=== PATIENT | female | born 1945 | race Caucasian/White ===

== ENCOUNTER → 2023-09-26 13:24 | Outpatient (CLI) | payer MEDICARE, BC, SELFPAY ==
--- NOTE | 2023-09-26 13:36 | DI.CT.S_ITS ---
PROCEDURE: CT ABDOMEN PELVIS W CON INDICATIONS: ABDOMINAL PAIN / RETAINED FOREIGN BODY TECHNIQUE: After the administration of oral and intravenous contrast, axial sections were acquired from the lung bases to the pubic symphysis. Coronal and sagittal reformats were performed. For radiation dose reduction, the following was used: automated exposure control, adjustment of mA and/or kV according to patient size. COMPARISON:None. FINDINGS: Image quality: Excellent. Lung bases: Unremarkable. Heart: No significant findings. ABDOMEN: Liver: No solid mass. Gallbladder: No radiopaque gallstones or wall thickening. Biliary ducts: No biliary dilation. Pancreas: No ductal dilation. Spleen: Size is within normal limits. Adrenal Glands: No adrenal nodules. Kidneys and Ureters: No hydronephrosis. No solid mass. No complex renal cystic lesion which requires follow up. Stomach and Bowel: Moderately advanced diverticulosis without evidence of diverticulitis. Peritoneum: No abnormal intraperitoneal fluid. No free air. Ventral Wall: No hernia. Abdominal Nodes: No retroperitoneal or mesenteric adenopathy by size criteria. Vessels: Aorta and inferior vena cava are normal in size. PELVIS: Pelvic Organs: Unremarkable. Bladder: Unremarkable. Pelvic Nodes: No enlarged lymph nodes. Miscellaneous: No inguinal hernias are seen. Bones: There is a moderate to severe T12 compression fracture which has an appearance suggesting that it has a potential acute or subacute component. There is extensive lumbar degenerative change. Bilateral L5 pars defects with mild anterolisthesis of L5 on S1 and severe right foraminal narrowing with right foraminal L5 nerve root impingement. IMPRESSION: 1. No acute abdominal process. 2. Moderately advanced colonic diverticulosis. 3. A moderately severe T12 compression likely as an acute or subacute component. 4. Extensive lumbar degenerative change. 5. Bilateral L5 pars defects with anterolisthesis of L5 on S1 and severe right foraminal narrowing with right foraminal L5 nerve root impingement. Dictated by: Alexander Bailon M.D. on 09/26/2023 at 18:48 Approved by: Alexander Bailon M.D. on 09/26/2023 at 18:55
== END ==
PROVIDERS: Family Provider Family Medicine; PCP Family Medicine; Referring Provider Internal Medicine; Visit Provider Internal Medicine
DX: K57.90 Diverticulosis of intestine, part unspecified, without perforation or abscess without bleeding (principal); R10.9 Unspecified abdominal pain; M48.54XA Collapsed vertebra, not elsewhere classified, thoracic region, initial encounter for fracture; M47.816 Spondylosis without myelopathy or radiculopathy, lumbar region; M43.17 Spondylolisthesis, lumbosacral region; M48.07 Spinal stenosis, lumbosacral region; Z18.9 Retained foreign body fragments, unspecified material
CPT/HCPCS: 74177; Q9967

== ENCOUNTER → 2025-04-07 16:06 | Outpatient (CLI) | payer MEDICARE, SELFPAY ==
--- NOTE | 2025-04-07 16:08 | DI.ECHO.S_ITS ---
[place] [facility] : : [address] : : [place] : : [id number] : : Phone: [phone] Echocardiogram Report + + :Name: SD YAN I Study Date: 04/07/2025 Height: 62 in : :[facility] ReadingLocation: Weight: 140 lb : : Gender: Female BSA: 1.6 m2 : :: 1945 Age: 79 yrs BP: 152/85 mmHg: :Reason For Study: ATRIAL FIBRILLATION : :Ordering Physician: RADHA BECKHAM Performed By: Antoni Murphy : :Referring: RADHA BECKHAM : + + Interpretation Summary The ejection fraction is estimated to be 60-65%. There is trace tricuspid regurgitation. The right ventricular systolic pressure is estimated to be at least 39 mmHg based on an estimated right atrial pressure of 3 mm Hg. Procedure: A two-dimensional transthoracic echocardiogram with color flow and Doppler was performed. The study quality was technically good. Comparison is made with the echocardiogram of 10/05/2011. The patient was in normal sinus rhythm during the exam. Left Ventricle: The left ventricle is normal in size. There is normal left ventricular wall thickness. There is no ventricular septal defect visualized. The ejection fraction is estimated to be 60-65%. There are no focal wall motion abnormalities. Diastolic parameters suggest probable normal left ventricular diastolic function and normal filling pressures. Right Ventricle: The right ventricle is normal in size and function. Atria: The left atrium is moderately dilated. Right atrial size is normal. There is no Doppler evidence for an interatrial shunt. Mitral Valve: There is mild mitral annular calcification. The mitral valve leaflets appear normal. There is no evidence of stenosis, fluttering, or prolapse. There is trace mitral regurgitation. Aortic Valve: The aortic valve is trileaflet. The aortic valve opens well. There is trace aortic regurgitation. Tricuspid Valve: The tricuspid valve leaflets are thin and pliable. There is trace tricuspid regurgitation. The right ventricular systolic pressure is estimated to be at least 39 mmHg based on an estimated right atrial pressure of 3 mm Hg. Pulmonic Valve: The pulmonic valve is not well visualized. There is no pulmonic valvular regurgitation. Great Vessels: The aortic root is normal size. The dimensions of the ascending aorta are normal. The pulmonary is not well visualized. The IVC is of normal diameter and collapses greater than 50% with a sniff. This suggests a low right atrial pressure of 3 mm Hg. Pericardium/ Pleura There is no pericardial effusion. There is no pleural effusion. MMode/2D Measurements & Calculations LVIDd: 5.0 cm LVOT diam: 1.8 cm LVIDs: 3.1 cm Ao root diam: 3.3 cm FS: 37.7 % asc Aorta Diam: 3.4 cm EPSS: 0.79 cm IVSd: 0.83 cm LVPWd: 0.73 cm LV griffiths. diameter/BSA (cm/m^2): 3.1 LV sys. diameter/BSA (cm/m^2): 1.9 LA A2 area: 19.9 cm2 RA long axis: 4.6 cm LA A4 area: 24.0 cm2 RA area: 14.9 cm2 LA length (vol): 6.4 cm RA vol: 40.5 ml LA vol: 62.8 ml RA : 24.7 ml/m2 LA vol index: 38.2 ml/m2 IVC diam: 2.1 cm RVD1 (basal): 3.3 cm RVD2 (mid): 2.5 cm TAPSE: 2.3 cm Doppler Measurements & Calculations Ao V2 max: 125.3 cm/sec LVOT Max Robbie: 105.2 cm/sec Ao V2 mean: 88.3 cm/sec LV V1 max P.4 mmHg Ao max P.3 mmHg LV V1 VTI: 26.8 cm Ao mean P.4 mmHg LUCIA(I,D): 2.1 cm2 Ao V2 VTI: 33.9 cm LUCIA(V,D): 2.2 cm2 sev ratio: 0.79 LUCIA indexed to BSA (cm^2/m^2): 1.3 MV E max robbie: 78.5 cm/sec TR max robbie: 301.9 cm/sec MV A max robbie: 44.9 cm/sec TR max P.4 mmHg MV E/A: 1.7 PA V2 max: 89.0 cm/sec Med Peak E' Robbie: 7.0 cm/sec PA V2 mean: 65.3 cm/sec E/E' med: 11.2 PA mean P.8 mmHg Lat Peak E' Robbie: 7.8 cm/sec PA pr(Accel): 29.3 mmHg E/E' lat: 10.1 E/e' average: 10.6 MV dec time: 0.22 sec SV(LVOT): 69.9 ml Reading Physician:12:09 PM
== END ==
PROVIDERS: Family Provider Family Medicine; PCP Family Medicine; Referring Provider Internal Medicine Cardiovascular Disease; Visit Provider Internal Medicine Cardiovascular Disease
DX: I34.81 Nonrheumatic mitral (valve) annulus calcification (principal); I48.0 Paroxysmal atrial fibrillation
CPT/HCPCS: 93306